=== PATIENT | male | born 1985 | race American Indian/Alaskan Native ===

== ENCOUNTER 2016-11-06 17:57 | Inpatient (IN) | payer MEDICAID ==
[2016-11-06 19:55] LABS: ADD MANUAL DIFF? NO
[2016-11-06 20:04] LABS: BASO # 0.1 K/uL (0.0-0.2); BASO % 0.8 % (0.0-2.0); EOS # 0.6 K/uL (0.0-0.7); EOS % 5.6 % (0.0-4.0); HEMATOCRIT 42.1 % (35.0-51.0); LYMPH # 1.8 K/uL (1.0-4.3); LYMPH % 15.6 % (20.0-40.0); MEAN CELL VOLUME 85.1 fL (80.0-94.0); MEAN CORPUSCULAR HEMOGLOBIN 28.4 pg (27.0-31.0); MEAN CORPUSCULAR HGB CONC 33.3 g/dL (33.0-37.0); MEAN PLATELET VOLUME 7.5 fL (7.2-11.7); MONO # 0.8 K/uL (0.0-0.8); MONO % 7.1 % (0.0-10.0); PLATELET COUNT 253 K/uL (130-400); RED CELL DISTRIBUTION WIDTH 14.4 % (11.5-14.5); WHITE BLOOD COUNT 11.3 K/uL (4.8-10.8)
[2016-11-06 20:12] LABS: ALB/GLOB RATIO 1.4 (1.0-2.1); BILIRUBIN,TOTAL 0.5 mg/dL (0.2-1.3); BLOOD UREA NITROGEN 10 mg/dL (9-20); CALCIUM 8.4 mg/dl (8.6-10.4); CARBON DIOXIDE 30 mmol/L (22-30); CHLORIDE 98 mmol/L (98-107); GFR AFRICAN-AMERICAN > 60; GLUCOSE,RANDOM 89 mg/dL (75-110); POTASSIUM 4.1 mmol/L (3.6-5.2); SODIUM 137 mmol/L (132-148); TOTAL PROTEIN 7.1 g/dL (6.3-8.3)
[2016-11-06 20:13] LABS: ALCOHOL SERUM < 10 mg/dl (0-10); ALKALINE PHOSPHATASE 63 U/L (38-126); ALT/SGPT 16 U/L (21-72); AST/SGOT 22 U/L (17-59)
[2016-11-06 21:14] LABS: RBC URINE 2 /hpf (0-3); URINE BILIRUBIN NEGATIVE (NEGATIVE); URINE BLOOD NEGATIVE (NEGATIVE); URINE COLOR Yellow (YELLOW); URINE GLUCOSE (UA) NORMAL (Normal); URINE KETONE NEGATIVE (NEGATIVE); URINE LEUKOCYTE ESTERASE NEG Leu/uL (Negative); URINE PROTEIN NEGATIVE (NEGATIVE); URINE UROBILINOGEN NORMAL mg/dL (0.2-1.0); WBC URINE 1 /hpf (0-5)
--- NOTE | 2016-11-06 21:50 | C.PDOC ---
History Of Present Illness Pt is here requesting detox from Heroin. Time Seen by Provider: 11/06/16 18:33 Chief Complaint (Nursing): Substance Abuse History Per: Patient Onset/Duration Of Symptoms: Days Current Symptoms Are (Timing): Still Present Suicide/Self Injury Attempted (Context): None Modifying Factor(s): Narcotics Severity: Moderate Associated Symptoms: denies: Suicidal Thoughts, Suicidal Plan Additional History Per: Prior Records Past Medical History Reviewed: Historical Data, Nursing Documentation, Vital Signs Vital Signs: Last Vital Signs Temp 98.2 F 11/06/16 21:00 Pulse 69 11/06/16 21:00 Resp 16 11/06/16 21:00 BP 126/78 11/06/16 21:00 Pulse Ox 96 11/06/16 21:51 - Medical History PMH: Asthma - [facility] DETOXIFICATION SERVICES FOR SUBSTANCE ABUSE TREATMENT (07/09/15) DRUG DETOXIFICATION (09/18/14) Family History: States: Unknown Family Hx - Social History Hx Tobacco Use: Yes Hx Alcohol Use: No Hx Substance Use: Yes (Snorts Heroin) - Immunization History Hx Tetanus Toxoid Vaccination: No Hx Influenza Vaccination: No Hx Pneumococcal Vaccination: Yes Review Of Systems Except As Marked, All Systems Reviewed And Found Negative. Constitutional: Negative for: Fever Cardiovascular: Negative for: Chest Pain Respiratory: Negative for: Shortness of Breath Gastrointestinal: Negative for: Vomiting, Abdominal Pain Musculoskeletal: Negative for: Neck Pain Skin: Negative for: Rash Neurological: Negative for: Weakness, Numbness, Seizures Physical Exam - Physical Exam Appears: Non-toxic, No Acute Distress Skin: Normal Color, Warm, No Rash Head: Atraumatic, Normacephalic Eye(s): bilateral: PERRL, EOMI Neck: Normal ROM, Supple Cardiovascular: Rhythm Regular Respiratory: Normal Breath Sounds, No Accessory Muscle Use Gastrointestinal/Abdominal: Soft, No Tenderness Extremity: Normal ROM, No Deformity Neurological/Psych: Oriented x3, Normal Motor, Normal Sensation ED Course And Treatment - Laboratory Results Result Diagrams: 11/06/16 19:53 11/06/16 19:53 Lab Interpretation: No Acute Changes O2 Sat by Pulse Oximetry: 96 Pulse Ox Interpretation: Normal Progress Note: Pt is medically stable for detox admission. Disposition Counseled Patient/Family Regarding: Studies Performed, Diagnosis - Disposition Disposition: HOSPITALIZED Disposition Time: 22:22 Condition: STABLE - Clinical Impression Clinical Impression: Heroin dependence Decision To Admit - Pt Status Changed To: Hospital Disposition Of: Inpatient - Admit Certification Admit to Inpatient:: After my assessment, the patient will require hospitalization for at least two midnights. This is because of the severity of symptoms shown, intensity of services needed, and/or the medical risk in this patient being treated as an outpatient. - InPatient: Physician Admission Certification: I certify that this patient requires 2 or more midnights of care for the following reason:: Detox. - . Bed Request Type: Detox Admitting Physician: Jaswinder Riddle Patient Diagnosis: Heroin dependence
[2016-11-07] MEDS ORDERED: Aluminum Hydroxide/Magnesium Hydroxide Susp (30 mL) PO PRN (10:08)
[2016-11-07] MEDS ORDERED: Benzocaine/Menthol (Cepacol) Lozenge MT PRN (10:40)
[2016-11-07] MEDS: guaiFENesin 100 mg/5 ml Syrup UD PO PRN ×2 (11:25→19:27)
--- NOTE | 2016-11-07 12:03 | PCM.PSYCH ---
Initial Psychiatric Evaluation - Initial Psychiatric Evaluation Type of Admission: Voluntary Legal Status: Capacity Chief Complaint (in patient's own words): "I relapsed 2 months ago" History of Present Illness and Precipitating Events: The patient is seen, chart reviewed and case discussed. He is known to the specification writer from previous admissions. This is a 31-year-old male, single, no child, living alone. He states he finished [facility] this year but relapsed a month after, about 2-3 months ago, and now he is using 7 bags of intranasal heroin He is also taking 4 mg of Xanax from a doctor for anxiety. He smokes half pack per day cigarettes. He denies all other drug and alcohol use. His last use was yesterday morning and he has withdrawal symptoms now. He denies having psych symptoms other than anxiety. He is on probation for another 6 months. Past psych history: Denies. However, he was admitted to detox more than 10 times and inpatient rehabilitation 3 times. He also used Suboxone. His first heroin use was when he was 16. Medical history: Denies Family psych history: Denies Current Medications: Active Medications Generic Name Dose Route Start Last Admin Trade Name Freq PRN Reason Stop Dose Admin Al Hydrox/Mg Hydrox/Simethicone 30 ml 11/07/16 10:08 Maalox 30 Ml PO TID PRN Indigestion / Heartburn Benzocaine/Menthol 1 mo 11/07/16 10:40 11/07/16 11:26 Cepacol Sore Throat MT 1 mo Q4H PRN Administration Sore Throat Chlordiazepoxide 25 mg 11/07/16 12:00 Librium PO 11/10/16 11:59 TID WILLI Taper Chlordiazepoxide 25 mg 11/07/16 11:08 Librium PO Q4H PRN Alcohol Withdrawal Clonidine HCl 0.1 mg 11/07/16 10:08 Catapres PO Q8 PRN COWS Score More or Equal to 5 Gabapentin 300 mg 11/07/16 11:15 11/07/16 11:26 Neurontin PO 300 mg BID WILLI Administration Guaifenesin 100 mg 11/07/16 10:40 11/07/16 11:25 Robitussin PO 100 mg Q4H PRN Administration Cough Loperamide HCl 2 mg 11/07/16 10:08 Imodium PO Q8 PRN Diarrhea Nicotine 1 patch 11/07/16 11:15 11/07/16 11:16 Nicoderm Cq TD 1 patch DAILY WILLI Administration Ondansetron HCl 4 mg 11/07/16 10:08 Zofran Tab PO Q8 PRN Nausea/Vomiting Pneumococcal Polyvalent Vaccine 0.5 ml 11/09/16 10:30 Pneumovax 23 Vaccine IM 11/09/16 10:31 .ONCE ONE Trazodone HCl 100 mg 11/07/16 22:00 Desyrel PO HS PRN Insomnia Past Psychiatric History - Past Psychiatric History Previous Treatment History: None Pertinent Medical Hx (Current Medical&Sleep Prob, Allergies): Allergies Allergy/AdvReac Type Severity Reaction Status Date / Time No Known Allergies Allergy Verified 07/09/15 15:52 No Known Home Med 11/06/16 Review of Systems - Psychiatric Psychiatric: Abnormal Sleep Pattern, Anxiety, Irritability. absent: Depression , Hallucinations, Homicidal Ideation, Suicidal Ideation Mental Status Examination - Personal Presentation Personal Presentation: Looks older than stated age - Affect Affect: Constricted - Motor Activity Motor Activity: Calm - Reliability in Providing Information Reliability in Providing Information: Good - Speech Speech: Organized - Mood Mood: Anxious - Formal Thought Process Formal Thought Process: No Impairment - Cognitive Functions Orientation: Person, Place, Situation, Time Sensorium: Alert Attention/Concentration: Easily distracted Abstract Thinking: [place] Estimate of Intelligence: Average Judgement: Intact, as evidence by: Insight regarding need for hospitalization Memory: Recent intact, as evidence by: Ability to recall events of the day, Remote intact, as evidenced by: Abilit to recall sig. life events - Risk Risk: Diminished functioning - Strength & Assets Inventory Strength & Assets Inventory: Cooperative - Limitations Limitations: Living alone DSM 5 DX - DSM 5 DSM 5 Diagnosis: Opioid withdrawal Opioid use d/o - severe Sedative hypnotic use d/o - moderate Anxiety d/o - unspecified - Recommended/Plan of Treatment Treatment Recommendations and Plan of Treatment: Opioids: - Subutex detox - As needed meds - Attend groups and activities - CA and CBT - Support an dpsychoed Sedatives: - Librium detox, short - As needed meds - Attend groups and activities - CA and CBT - Support an dpsychoed - Gabapentin Anxiety d/o : - Support and psychoed - gabapentin - CBT 33 min Projected ELOS: 4 days Prognosis: good with treatment Discharge Plan and Discharge Criteria: No wdw sx Refer to IOP or rehab MAT discussed and he understood its importance - Smoking Cessation Smoking Cessation Initiated: Yes
[2016-11-07] MEDS ORDERED: Albuterol HFA 90 mcg/actuation (8 g) INH PRN (14:11)
[2016-11-07] MEDS ORDERED: Buprenorphine Hydrochloride 2 mg SL ONE ×2 (18:12→19:40)
[2016-11-07] MEDS: Fluticasone-Salmeterol 250-50mcg Diskus INH SCH (19:27)
[2016-11-08] MEDS: Fluticasone-Salmeterol 250-50mcg Diskus INH SCH ×3 (07:26→21:51)
[2016-11-08] MEDS: guaiFENesin 100 mg/5 ml Syrup UD PO PRN (07:26)
[2016-11-08] MEDS: Oxymetazoline 0.05% Nasal Spray (30 ml) NS SCH ×2 (09:37→21:40)
[2016-11-08] MEDS: Buprenorphine Hydrochloride 2 mg SL SCH (09:55)
--- NOTE | 2016-11-08 11:04 | PCM.PYCHPN ---
Psychiatric Progress Note - Psychiatric Progress Note Patient seen today, length of contact: 15 min Patient Chief Complaint: "I am still sick" Problems Identified/Issues Discussed: The pt is seen, chart reviewed and case discussed Support and psychoed given LA used Sxs of wdw are in control with detox He slept fine Medication Change: Yes (detox changes daily) Medical Record Reviewed: Yes Mental Status Examination - Cognitive Function Orientation: Person, Place, Situation, Time Memory: Intact Attention: WNL Concentration: WNL Association: WNL Fund of Knowledge: WNL - Mood Mood: Anxious - Affect Affect: Constricted - Speech Speech: Appropriate - Formal Thought Process Formal Thought Process: No Impairment - Suicidal Ideation Suicidal Ideation: No - Homicidal Ideation Homicidal Ideation: No Goal/Treatment Plan - Goal/Treatment Plan Need for Continued Stay: Discharge may exacerbated symptoms, Severe functional impairment Progress Toward Problem(s) and Goals/Treatment Plan: Opioids: - Subutex detox - As needed meds - Attend groups and activities - LA and CBT - Support an dpsychoed Sedatives: - Librium detox, short - As needed meds - Attend groups and activities - LA and CBT - Support an dpsychoed - Gabapentin Anxiety d/o : - Support and psychoed - gabapentin - CBT Afrin, cepakol and robitussin for cold Estimated Date of D/C: 11/10/16 - Smoking Cessation Smoking Cessation Initiated: Yes
[2016-11-09] MEDS: Oxymetazoline 0.05% Nasal Spray (30 ml) NS SCH ×2 (10:09→20:09)
[2016-11-09] MEDS: Buprenorphine Hydrochloride 2 mg SL SCH (10:10)
[2016-11-09] MEDS: Fluticasone-Salmeterol 250-50mcg Diskus INH SCH ×2 (10:10→20:09)
[2016-11-09] MEDS ORDERED: Pneumococcal 23-Valent Vaccine IM ONE (10:30)
--- NOTE | 2016-11-09 11:50 | PCM.PYCHPN ---
Psychiatric Progress Note - Psychiatric Progress Note Patient seen today, length of contact: 16 min Patient Chief Complaint: "I am better" Problems Identified/Issues Discussed: The pt is seen, chart reviewed, case discussed with staff. The pt is compliant with medications and reports no side-effects. Symptoms are improving but needs more time to stabilize. After care discussed, support and psychoeducation given. Medication Change: Yes (detox changes daily) Medical Record Reviewed: Yes Mental Status Examination - Cognitive Function Orientation: Person, Place, Situation, Time Memory: Intact Attention: WNL Concentration: WNL Association: WNL Fund of Knowledge: WNL - Mood Mood: Anxious - Affect Affect: Constricted - Speech Speech: Appropriate - Formal Thought Process Formal Thought Process: No Impairment - Suicidal Ideation Suicidal Ideation: No - Homicidal Ideation Homicidal Ideation: No Goal/Treatment Plan - Goal/Treatment Plan Need for Continued Stay: Discharge may exacerbated symptoms, Severe functional impairment Progress Toward Problem(s) and Goals/Treatment Plan: Opioids: - Subutex detox - As needed meds - Attend groups and activities - [place] and CBT - Support an dpsychoed Sedatives: - Librium detox, short - As needed meds - Attend groups and activities - NV and CBT - Support an dpsychoed - Gabapentin Anxiety d/o : - Support and psychoed - gabapentin - CBT Afmike, cepakol and aureaitussin for cold Estimated Date of D/C: 11/10/16
[2016-11-10 06:21] VITALS: O2SAT 96
--- NOTE | 2016-11-10 08:27 | PCM.PYCHDC ---
Mental Status Examination - Mental Status Examination Orientation: Person, Place, Situation, Time Memory: Intact Mood: Anxious Affect: Constricted Speech: Appropriate Attention: WNL Concentration: WNL Association: WNL Fund of Knowledge: WNL Formal Thought Process: No Impairment Suicidal Ideation: No Current Homicidal Ideation?: No Discharge Summary - Discharge Note Reason for Hospitalization: Opioid detox Consultations:: List each consultation separately and include: 1. Reason for request. 2. Findings. 3. Follow-up Summary of Hospital Course include:: 1. Description of specific treatment plan utilized for patients during their course of treatmen. 2. Summarize the time- course for resolution of acute symptoms and/or regressed behaviors. 3. Describe issues identified and worked on during hospitalization. 4. Describe medication utilized. 5. Describe medical problems identified and treated. 6. Reassessment of suicide risk Summary of Hospital Course: The patient is seen, chart reviewed and case discussed. On admission: He is known to the inspector automatic typewriter from previous admissions. This is a 31-year-old male, single, no child, living alone. He states he finished [facility] this year but relapsed a month after, about 2-3 months ago, and now he is using 7 bags of intranasal heroin He is also taking 4 mg of Xanax from a doctor for anxiety. He smokes half pack per day cigarettes. He denies all other drug and alcohol use. His last use was yesterday morning and he has withdrawal symptoms now. He denies having psych symptoms other than anxiety. He is on probation for another 6 months. Past psych history: Denies. However, he was admitted to detox more than 10 times and inpatient rehabilitation 3 times. He also used Suboxone. His first heroin use was when he was 16. Medical history: Denies Family psych history: Denies Hospital course: The pt was admitted and started on treatment with psychotherapy, support, psychoeducation and medications. MT and CBT used. The pt attended groups and activities, as well as milieu therapy. All the risks and benefits of medications are discussed and the patient understood and agreed. After care discussed with the patient. He chose to go to [facility] level and referred to [facility] - Final Diagnosis (DSM 5) Condition upon Discharge: STABLE DSM 5: Opioid withdrawal Opioid use d/o - severe Sedative hypnotic use d/o - moderate Anxiety d/o - unspecified Disposition: HOME/ ROUTINE Follow-up Treatment Plan: Continue below medications after discharge. Follow after care plan as discussed: [facility] IOP Use relapse prevention skills Return to ER or call 911 if suicidal, homicidal or symptoms relapse. Stay away from stress, alcohol and drugs. Prescriptions/Medication Reconciliation: Albuterol HFA [Ventolin HFA 90 mcg/actuation (8 g)] 1 puff INH RQ4 PRN #1 inhaler PRN Reason: SOB Fluticasone/Salmeterol 250/50 [Advair Diskus 250/50] 1 puff INH RQ12 #1 puff Gabapentin [Neurontin] 300 mg PO BID #60 cap traZODone [Desyrel] 100 mg PO HS PRN #30 tab PRN Reason: Insomnia - Smoking Cessation Smoking Cessation Medication prescribed: No - Antipsychotic Medications Pt discharged on 2 or more routine antipsychotic medications: No
[2016-11-10 10:51] VITALS: BP 143/83; PULSE 80; RESP 16; TEMP 97.5
[2016-11-10] MEDS: Oxymetazoline 0.05% Nasal Spray (30 ml) NS SCH (10:58)
[2016-11-10] MEDS: Fluticasone-Salmeterol 250-50mcg Diskus INH SCH (10:58)
[2016-11-10] MEDS: Buprenorphine Hydrochloride 2 mg SL SCH (10:59)
== END 2016-11-10 11:55 | disposition home or self-care (01) | DRG 745 ==
LOC: C.ER 17:57 → C.7D 22:22
PROC: HZ52ZZZ Individual Psychotherapy for Substance Abuse Treatment, Cognitive-Behavioral (ICD-10-PCS; principal; 2016-11-06)
PROC: HZ2ZZZZ Detoxification Services for Substance Abuse Treatment (ICD-10-PCS; 2016-11-06)
PROC: HZ59ZZZ Individual Psychotherapy for Substance Abuse Treatment, Supportive (ICD-10-PCS; 2016-11-06)
PROC: HZ56ZZZ Individual Psychotherapy for Substance Abuse Treatment, Psychoeducation (ICD-10-PCS; 2016-11-06)
DX: F11.23 Opioid dependence with withdrawal (principal); F13.20 Sedative, hypnotic or anxiolytic dependence, uncomplicated; F41.9 Anxiety disorder, unspecified

== ENCOUNTER 2017-11-24 21:43 | Inpatient (IN) | payer MEDICAID ==
--- NOTE | 2017-11-24 21:59 | C.PDOC ---
History Of Present Illness 32 year old male presents to the ED requesting detox for heroin abuse. 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 Patient reports he snorts 15 bags. Patient denies SI/HI, hallucinations, fever, chills, CP, SOB. Time Seen by Provider: 11/24/17 21:58 Chief Complaint (Nursing): Substance Abuse History Per: Patient History/Exam Limitations: no limitations Onset/Duration Of Symptoms: Hrs Current Symptoms Are (Timing): Still Present Suicide/Self Injury Attempted (Context): None Modifying Factor(s): Other (Heroin) Severity: None Associated Symptoms: denies: Depression, Suicidal Thoughts, Suicidal Plan Involuntary Hold By: None Recent travel outside of the [place]: No Additional History Per: Patient Past Medical History Reviewed: Historical Data, Nursing Documentation, Vital Signs Vital Signs: Last Vital Signs Temp 99.2 F 11/24/17 21:49 Pulse 107 H 11/24/17 21:49 Resp 18 11/24/17 21:49 BP 145/87 11/24/17 21:49 Pulse Ox 95 11/24/17 23:57 - Medical History PMH: Anxiety, Asthma Denies: Diabetes, Hepatitis, HIV, HTN, Chronic Kidney Disease, Seizures, Sexually Transmitted Disease Surgical History: No Surg Hx - [facility] DETOXIFICATION SERVICES FOR SUBSTANCE ABUSE TREATMENT (11/06/16) DRUG DETOXIFICATION (09/18/14) INDIV PSYCHOTHERAPY FOR SUBSTANCE ABUSE TREATMENT, SUPPORT (11/06/16) INDIV PSYCHOTHERAPY FOR SUBSTANCE ABUSE, COGNITIV BEHAVIORAL (11/06/16) INDIV PSYCHOTHERAPY FOR SUBSTANCE ABUSE, PSYCHOEDUCATION (11/06/16) Family History: States: Unknown Family Hx - Social History Hx Tobacco Use: Yes Hx Alcohol Use: Yes Hx Substance Use: Yes (Snorts Heroin) - Immunization History Hx Tetanus Toxoid Vaccination: No Hx Influenza Vaccination: No Hx Pneumococcal Vaccination: Yes Review Of Systems Constitutional: Negative for: Fever, Chills Cardiovascular: Negative for: Chest Pain Respiratory: Negative for: Shortness of Breath Gastrointestinal: Negative for: Nausea, Vomiting Skin: Negative for: Rash Neurological: Negative for: Headache Psych: Negative for: Depression, Suicidal ideation Physical Exam - Physical Exam Appears: Non-toxic, No Acute Distress Skin: Warm, Dry Head: Normacephalic Eye(s): bilateral: Normal Inspection Oral Mucosa: Moist Neck: Supple Chest: Symmetrical Cardiovascular: Rhythm Regular Respiratory: No Rales, No Rhonchi, No Wheezing Gastrointestinal/Abdominal: Soft, No Tenderness, No Guarding, No Rebound Back: Normal Inspection Extremity: No Tenderness, No Swelling Extremity: Bilateral: Atraumatic, Normal Color And Temperature, Normal ROM Neurological/Psych: Oriented x3, Normal Speech Gait: Steady ED Course And Treatment - Laboratory Results Result Diagrams: 11/24/17 22:39 11/24/17 22:39 O2 Sat by Pulse Oximetry: 95 (ON RA) Pulse Ox Interpretation: Normal Progress Note: Plan: - Labs. - UA. - Crisis Disposition Discussed With DrEstevan: Kartik Riojas Comment: accepted the p ton his service and took over the care at 12:40 AM Doctor Will See Patient In The: Hospital Counseled Patient/Family Regarding: Studies Performed, Diagnosis - Disposition Disposition: HOSPITALIZED Disposition Time: 21:59 Condition: FAIR Forms: [facility] (Amharic) - Clinical Impression Clinical Impression: Drug abuse, Heroin dependence - Scribe Statement The provider has reviewed the documentation as recorded by the Scribe Baljeet Delaney All medical record entries made by the Scribe were at my direction and personally dictated by me. I have reviewed the chart and agree that the record accurately reflects my personal performance of the history, physical exam, medical decision making, and the department course for this patient. I have also personally directed, reviewed, and agree with the discharge instructions and disposition. Decision To Admit - Pt Status Changed To: Hospital Disposition Of: Inpatient - Admit Certification Admit to Inpatient:: After my assessment, the patient will require hospitalization for at least two midnights. This is because of the severity of symptoms shown, intensity of services needed, and/or the medical risk in this patient being treated as an outpatient. - InPatient: Physician Admission Certification: I certify that this patient requires 2 or more midnights of care for the following reason:: After my assessment, the patient will require hospitalization for at least two midnights. This is because of the severity of symptoms shown, intensity of services needed, and/or the medical risk in this patient being treated as an outpatient. - . Bed Request Type: Detox Admitting Physician: Kartik Riojas Patient Diagnosis: Drug abuse, Heroin dependence
[2017-11-24 22:42] LABS: BASO # 0.1 K/uL (0.0-0.2); BASO % 0.9 % (0.0-2.0); EOS # 0.4 K/uL (0.0-0.7); EOS % 4.1 % (0.0-4.0); LYMPH # 2.1 K/uL (1.0-4.3); LYMPH % 18.9 % (20.0-40.0); MEAN CELL VOLUME 83.4 fL (80.0-94.0); MEAN CORPUSCULAR HEMOGLOBIN 27.6 pg (27.0-31.0); MEAN CORPUSCULAR HGB CONC 33.1 g/dL (33.0-37.0); MEAN PLATELET VOLUME 7.5 fL (7.2-11.7); MONO # 0.6 K/uL (0.0-0.8); MONO % 5.9 % (0.0-10.0); NEUT # 7.7 K/uL (1.8-7.0); NEUT % 70.2 % (50.0-75.0); NRBC % 0.2 % (0.0-2.0); RBC 5.07 Mil/uL (4.40-5.90)
[2017-11-24 22:59] LABS: ALB/GLOB RATIO 1.5 (1.0-2.1); ALBUMIN 4.8 g/dL (3.5-5.0); ALT/SGPT 27 U/L (21-72); AST/SGOT 24 U/L (17-59); BLOOD UREA NITROGEN 10 mg/dL (9-20); CALCIUM 9.3 mg/dl (8.6-10.4); GFR AFRICAN-AMERICAN > 60; GFR NON-AFRICAN AMERICAN > 60
[2017-11-24] MEDS ORDERED: Albuterol-Ipratrop 3 mg / 0.5 (3 ml) UD INH STA (23:44)
[2017-11-24] MEDS ORDERED: Albuterol-Ipratrop 3 mg / 0.5 (3 ml) UD ONE (23:49)
[2017-11-25 00:05] LABS: SQUAMOUS EPITHIAL < 1 /hpf (0-5); URINE BACTERIA RARE (<OCC); URINE BILIRUBIN NEGATIVE (NEGATIVE); URINE BLOOD NEGATIVE (NEGATIVE); URINE CLARITY Clear (Clear); URINE COLOR Yellow (YELLOW); URINE GLUCOSE (UA) NORMAL (Normal); URINE LEUKOCYTE ESTERASE NEG Leu/uL (Negative); URINE PROTEIN NEGATIVE (NEGATIVE); URINE UROBILINOGEN NORMAL mg/dL (0.2-1.0)
[2017-11-25 00:09] LABS: BARBITURATES, UR NEGATIVE (NEGATIVE); OPIATES, UR NEGATIVE (NEGATIVE); PHENCYCLIDINE, UR NEGATIVE (NEGATIVE)
[2017-11-25 00:18] LABS: BENZODIAZEPINES, UR POSITIVE (NEGATIVE)
[2017-11-25] MEDS ORDERED: Aluminum Hydroxide/Magnesium Hydroxide Susp (30 mL) PO PRN (07:40)
--- NOTE | 2017-11-25 07:42 | PCM.PSYCH ---
Initial Psychiatric Evaluation - Initial Psychiatric Evaluation Type of Admission: Voluntary Legal Status: Capacity Chief Complaint (in patient's own words): "Withdrawing" History of Present Illness and Precipitating Events: The patient is seen, chart reviewed and case discussed. He is known to the publicity writer from previous admissions. This is a 32-year-old male, single, no child, living with parents. He states he finished [facility] but relapsed soon after, and now he is using up to 15, sometimes 20 bags of intranasal heroin. He started when he was 16 y/o He is also taking 2 mg of Xanax from a doctor for anxiety. He smokes half pack per day cigarettes. He denies all other drug and alcohol use. His last use was yesterday and he has withdrawal symptoms now. His urine came negative but he does have wdw sxs He denies having psych symptoms other than anxiety. He was in detox "many times" and rehab "less" and he used suboxone too. Past psych history: Denies. Medical history: Asthma Family psych history: Denies Current Medications: Active Medications Generic Name Dose Route Start Last Admin Trade Name Freq PRN Reason Stop Dose Admin Al Hydrox/Mg Hydrox/Simethicone 30 ml 11/25/17 07:40 Maalox 30 Ml PO TID PRN Indigestion / Heartburn Clonidine HCl 0.1 mg 11/25/17 07:40 Catapres PO Q8 PRN COWS Score More or Equal to 5 Loperamide HCl 2 mg 11/25/17 07:40 Imodium PO Q8 PRN Diarrhea Ondansetron HCl 4 mg 11/25/17 07:40 Zofran Tab PO Q8 PRN Nausea/Vomiting Past Psychiatric History - Past Psychiatric History Previous Treatment History: None Pertinent Medical Hx (Current Medical&Sleep Prob, Allergies): Allergies Allergy/AdvReac Type Severity Reaction Status Date / Time No Known Allergies Allergy Verified 11/24/17 21:56 Albuterol HFA [Ventolin HFA 90 mcg/actuation (8 g)] 1 puff INH RQ4 PRN #1 inhaler 11/10/16 Fluticasone/Salmeterol 250/50 [Advair Diskus 250/50] 1 puff INH RQ12 #1 puff 07/28 ALPRAZolam [Xanax] 1 mg PO BID 11/24/17 Review of Systems - Psychiatric Psychiatric: Abnormal Sleep Pattern, Anxiety, Difficulty Concentrating, Irritability. absent: Hallucinations, Homicidal Ideation, Paranoia, Suicidal Ideation Mental Status Examination - Personal Presentation Personal Presentation: Looks older than stated age - Affect Affect: Constricted - Motor Activity Motor Activity: Calm - Reliability in Providing Information Reliability in Providing Information: Good - Speech Speech: Organized - Mood Mood: Anxious - Formal Thought Process Formal Thought Process: No Impairment - Cognitive Functions Orientation: Person, Place, Situation, Time Sensorium: Alert Attention/Concentration: Attentive Estimate of Intelligence: Average Judgement: Intact, as evidence by: Insight regarding need for hospitalization Memory: Recent intact, as evidence by: Ability to recall events of the day, Remote impaired as evidenced by: Inability to recall historical events - Risk Risk: Withdrawal, Diminished functioning - Strength & Assets Inventory Strength & Assets Inventory: Cooperative - Limitations Limitations: Living alone DSM 5 DX - DSM 5 DSM 5 Diagnosis: Opioid withdrawal Opioid use d/o - severe Sedative hypnotic use d/o - moderate Anxiety d/o - unspecified - Recommended/Plan of Treatment Treatment Recommendations and Plan of Treatment: Opioids: - Methadone detox - As needed meds - Attend groups and activities - [place] and CBT - Support an dpsychoed Sedatives: - Librium detox, short - As needed meds - Attend groups and activities - [place] and CBT - Support an dpsychoed - Gabapentin Anxiety d/o : - Support and psychoed - gabapentin - CBT 33 min Projected ELOS: 5 days - Smoking Cessation Smoking Cessation Initiated: Yes
[2017-11-25] MEDS ORDERED: Albuterol-Ipratrop 20 mcg/actuation (4 g) INH PRN ×2 (08:44→11:00)
[2017-11-25] MEDS ORDERED: Albuterol-Ipratrop 3 mg / 0.5 (3 ml) UD INH PRN (10:36)
[2017-11-25 12:02] LABS: BARBITURATES, UR NEGATIVE (NEGATIVE); PHENCYCLIDINE, UR NEGATIVE (NEGATIVE)
[2017-11-25 13:05] LABS: BENZODIAZEPINES, UR POSITIVE (NEGATIVE); OPIATES, UR POSITIVE (NEGATIVE)
[2017-11-26 06:13] VITALS: RESP 18
--- NOTE | 2017-11-26 21:54 | PCM.PYCHPN ---
Psychiatric Progress Note - Psychiatric Progress Note Patient seen today, length of contact: 16 min Patient Chief Complaint: "Tired" Problems Identified/Issues Discussed: The pt is seen, chart reviewed, case discussed with staff. The pt is compliant with medications and reports no side-effects. Symptoms are improving but needs more time to stabilize. After care discussed, support and psychoeducation given. Medication Change: Yes (detox changes daily) Medical Record Reviewed: Yes Mental Status Examination - Cognitive Function Orientation: Person, Place, Situation, Time Memory: Intact Attention: WNL Concentration: Poor Association: WNL Fund of Knowledge: WNL - Mood Mood: Anxious - Affect Affect: Constricted - Speech Speech: Appropriate - Formal Thought Process Formal Thought Process: No Impairment - Suicidal Ideation Suicidal Ideation: No - Homicidal Ideation Homicidal Ideation: No Goal/Treatment Plan - Goal/Treatment Plan Need for Continued Stay: Discharge may exacerbated symptoms, Severe functional impairment Progress Toward Problem(s) and Goals/Treatment Plan: Opioids: - Methadone detox - As needed meds - Attend groups and activities - LA and CBT - Support an dpsychoed Sedatives: - Librium detox, short - As needed meds - Attend groups and activities - LA and CBT - Support an dpsychoed - Gabapentin Anxiety d/o : - Support and psychoed - gabapentin - CBT Estimated Date of D/C: 11/29/17
--- NOTE | 2017-11-27 12:58 | PCM.BM ---
<Jo Ann Scott - Last Filed: 11/27/17 12:56> Treatment Plan Problems - Problems identified on initial assessmt Potential for opiod withdrawal Assessment reference: Other Treatment assets and liabiliti Patient Assests: self-reliant, ADL independent, good support system, negotiates basic needs Patient Liabilities: substance abuse - Milieu Protocol Maintain good personal hygiene: every shift Encourage regular showers, every shift Remind patient to perform daily oral care, every shift Assist patient to perform ADL's Maintain personal safety: every shift Educate patient to report safety concerns to staff, every shift Monitor environment for contraband/sharps Medication safety: Monitor for expected outcome, potential side effects: every shift, Assess barriers to learning: every shift, Assess readiness for medication education: every shift Milieu Narrative: Opioids: - Methadone detox - As needed meds - Attend groups and activities - [place] and CBT - Support an dpsychoed Sedatives: - Librium detox, short - As needed meds - Attend groups and activities - [place] and CBT - Support an dpsychoed - Gabapentin Anxiety d/o : - Support and psychoed - gabapentin - CBT Discharge/Continuing Care - Treatment Team Participation Patient/Family/SO Statement: Opioids: - Methadone detox - As needed meds - Attend groups and activities - [place] and CBT - Support an dpsychoed Sedatives: - Librium detox, short - As needed meds - Attend groups and activities - [place] and CBT - Support an dpsychoed - Gabapentin Anxiety d/o : - Support and psychoed - gabapentin - CBT <Kartik Riojas - Last Filed: 11/27/17 14:07> - Diagnosis (1) Opioid use disorder, severe, dependence Status: Acute Interventions: 11/27/17 14:07 * Assess 7x/week regarding severity of withdrawal * Educate regarding risks, benefits, side effects and alternatives of medications * Use Motivational Interviewing for abstinence * Use CBT for relapse prevention * Medication management for withdrawal symptoms * Encourage medication assisted treatment * <Katie Corrales - Last Filed: 11/29/17 10:46> Family Contact Family involvement: Famliy/SO not involved - Goals for Treatment Patient goals for treatment: Complete detox and transition to rehab at [facility]. Discharge/Continuing Care - Education Needs Education Needs: Patient Medication, Patient Diagnosis/Disease Process, Patient Coping Skills, Patient Anger Management skills, Patient Placement options, Patient Community resources - Discharge Discharge Criteria: No longer exhibiting s/s of withdrawal, Reduction of target symptoms Discharge to:: Substance Abuse Rehab - Treatment Team Participation Patient/Family/SO Statement: 11/29/17 10:46 "[place]. I can't stay here..." Discussed with Family/SO: No Was Patient/Family/SO present at Treatment Team Meeting: Yes
--- NOTE | 2017-11-27 14:09 | PCM.PYCHPN ---
Psychiatric Progress Note - Psychiatric Progress Note Patient seen today, length of contact: 17 min Patient Chief Complaint: "Better today" Problems Identified/Issues Discussed: The pt is seen, chart reviewed, case discussed with staff. Support and psychoeducation given, CBT and OH used briefly No new symptoms reported, improving slowly and needs more time He is more up and about today, more appropriate and calmer No SEs from medications, risks discussed. After care discussed Medication Change: Yes (detox changes daily) Medical Record Reviewed: Yes Mental Status Examination - Cognitive Function Orientation: Person, Place, Situation, Time Memory: Intact Attention: WNL Concentration: Poor Association: WNL Fund of Knowledge: WNL - Mood Mood: Anxious - Affect Affect: Constricted - Speech Speech: Appropriate - Formal Thought Process Formal Thought Process: No Impairment - Suicidal Ideation Suicidal Ideation: No - Homicidal Ideation Homicidal Ideation: No Goal/Treatment Plan - Goal/Treatment Plan Need for Continued Stay: Discharge may exacerbated symptoms, Severe functional impairment Progress Toward Problem(s) and Goals/Treatment Plan: Opioids: - Methadone detox - As needed meds - Attend groups and activities - [place] and CBT - Support an dpsychoed Sedatives: - Librium detox, short - As needed meds - Attend groups and activities - [place] and CBT - Support an dpsychoed - Gabapentin Anxiety d/o : - Support and psychoed - gabapentin - CBT Estimated Date of D/C: 11/29/17
--- NOTE | 2017-11-28 13:30 | PCM.PYCHPN ---
Psychiatric Progress Note - Psychiatric Progress Note Patient seen today, length of contact: 15 min Patient Chief Complaint: "Better today" Problems Identified/Issues Discussed: The pt is seen, chart reviewed, case discussed with staff. The pt is compliant with medications and reports no side-effects. Symptoms are improving but needs more time to stabilize. After care discussed, support and psychoeducation Medication Change: Yes (detox changes daily) Medical Record Reviewed: Yes Mental Status Examination - Cognitive Function Orientation: Person, Place, Situation, Time Memory: Intact Attention: WNL Concentration: Poor Association: WNL Fund of Knowledge: WNL - Mood Mood: Anxious - Affect Affect: Constricted - Speech Speech: Appropriate - Formal Thought Process Formal Thought Process: No Impairment - Suicidal Ideation Suicidal Ideation: No - Homicidal Ideation Homicidal Ideation: No Goal/Treatment Plan - Goal/Treatment Plan Need for Continued Stay: Discharge may exacerbated symptoms, Severe functional impairment Progress Toward Problem(s) and Goals/Treatment Plan: Opioids: - Methadone detox - As needed meds - Attend groups and activities - [place] and CBT - Support an dpsychoed Sedatives: - Librium detox, short - As needed meds - Attend groups and activities - [place] and CBT - Support an dpsychoed - Gabapentin Anxiety d/o : - Support and psychoed - gabapentin - CBT Estimated Date of D/C: 11/29/17
--- NOTE | 2017-11-29 08:27 | PCM.PYCHDC ---
Mental Status Examination - Mental Status Examination Orientation: Person, Place, Situation, Time Memory: Intact Mood: Anxious Affect: Constricted Speech: Appropriate Attention: WNL Concentration: WNL Association: WNL Fund of Knowledge: WNL Formal Thought Process: No Impairment Suicidal Ideation: No Current Homicidal Ideation?: No Discharge Summary - Discharge Note Reason for Hospitalization: opioid detox Consultations:: List each consultation separately and include: 1. Reason for request. 2. Findings. 3. Follow-up Summary of Hospital Course include:: 1. Description of specific treatment plan utilized for patients during their course of treatmen. 2. Summarize the time- course for resolution of acute symptoms and/or regressed behaviors. 3. Describe issues identified and worked on during hospitalization. 4. Describe medication utilized. 5. Describe medical problems identified and treated. 6. Reassessment of suicide risk Summary of Hospital Course: The patient is seen, chart reviewed and case discussed. On admission: He is known to the resume writer from previous admissions. This is a 32-year-old male, single, no child, living with parents. He states he finished [facility] but relapsed soon after, and now he is using up to 15, sometimes 20 bags of intranasal heroin. He started when he was 16 y/o He is also taking 2 mg of Xanax from a doctor for anxiety. He smokes half pack per day cigarettes. He denies all other drug and alcohol use. His last use was yesterday and he has withdrawal symptoms now. His urine came negative but he does have wdw sxs He denies having psych symptoms other than anxiety. He was in detox "many times" and rehab "less" and he used suboxone too. Past psych history: Denies. Medical history: Asthma Family psych history: Denies Hospital course: The pt was admitted and started on treatment with psychotherapy, support, psychoeducation and medications. MA and CBT used. The pt attended groups and activities, as well as milieu therapy. All the risks and benefits of medications are discussed and the patient understood and agreed. The pt improved with the treatments provided. After care discussed with the patient.He left for [facility] in [place]. - Final Diagnosis (DSM 5) Condition upon Discharge: IMPROVED DSM 5: Opioid withdrawal Opioid use d/o - severe Sedative hypnotic use d/o - moderate Anxiety d/o - unspecified Disposition: REHAB FACILITY/REHAB UNIT Follow-up Treatment Plan: Continue below medications after discharge. Follow after care plan as discussed. Use relapse prevention skills Return to ER or call 911 if suicidal, homicidal or symptoms relapse. Stay away from stress, alcohol and drugs. See primary doctor regularly and get labs. Prescriptions/Medication Reconciliation: traZODone [Desyrel] 100 mg PO HS PRN #30 tab PRN Reason: Insomnia - Smoking Cessation Smoking Cessation Medication prescribed: No - Antipsychotic Medications Pt discharged on 2 or more routine antipsychotic medications: No
[2017-11-29 10:48] VITALS: BP 103/66; PULSE 62; TEMP 98.1; O2SAT 100
== END 2017-11-29 10:57 | disposition home or self-care (01) | DRG 745 ==
LOC: C.ER 21:43 → C.7D 11-25 00:39
PROVIDERS: ADMIT Psychiatry & Neurology Psychiatry; ATTEND Psychiatry & Neurology Psychiatry
PROC: HZ2ZZZZ Detoxification Services for Substance Abuse Treatment (ICD-10-PCS; principal; 2017-11-25)
PROC: HZ52ZZZ Individual Psychotherapy for Substance Abuse Treatment, Cognitive-Behavioral (ICD-10-PCS; 2017-11-25)
PROC: HZ59ZZZ Individual Psychotherapy for Substance Abuse Treatment, Supportive (ICD-10-PCS; 2017-11-25)
PROC: HZ56ZZZ Individual Psychotherapy for Substance Abuse Treatment, Psychoeducation (ICD-10-PCS; 2017-11-25)
PROC: HZ42ZZZ Group Counseling for Substance Abuse Treatment, Cognitive-Behavioral (ICD-10-PCS; 2017-11-25)
PROC: HZ46ZZZ Group Counseling for Substance Abuse Treatment, Psychoeducation (ICD-10-PCS; 2017-11-25)
DX: F11.23 Opioid dependence with withdrawal (principal); F13.20 Sedative, hypnotic or anxiolytic dependence, uncomplicated; F17.210 Nicotine dependence, cigarettes, uncomplicated; F41.9 Anxiety disorder, unspecified; J45.909 Unspecified asthma, uncomplicated

== ENCOUNTER 2018-02-01 16:46 | Inpatient (IN) | payer MEDICAID, OTHER ==
[2018-02-01 17:05] VITALS: BMI 29.3
[2018-02-01 17:53] LABS: BASO # 0.1 K/uL (0.0-0.2); BASO % 1.1 % (0.0-2.0); EOS # 0.8 K/uL (0.0-0.7); EOS % 9.6 % (0.0-4.0); HEMOGLOBIN 13.8 g/dL (12.0-18.0); LYMPH # 2.4 K/uL (1.0-4.3); LYMPH % 30.7 % (20.0-40.0); MEAN CELL VOLUME 82.7 fL (80.0-94.0); MEAN CORPUSCULAR HGB CONC 33.8 g/dL (33.0-37.0); MEAN PLATELET VOLUME 7.9 fL (7.2-11.7); MONO # 0.7 K/uL (0.0-0.8); MONO % 8.3 % (0.0-10.0); NEUT # 3.9 K/uL (1.8-7.0); NEUT % 50.3 % (50.0-75.0); NRBC % 0.4 % (0.0-2.0); RBC 4.94 Mil/uL (4.40-5.90); RED CELL DISTRIBUTION WIDTH 14.1 % (11.5-14.5); WHITE BLOOD COUNT 7.8 K/uL (4.8-10.8)
[2018-02-01 18:02] LABS: ALB/GLOB RATIO 1.5 (1.0-2.1); ALBUMIN 4.5 g/dL (3.5-5.0); CALCIUM 9.3 mg/dl (8.6-10.4); GFR NON-AFRICAN AMERICAN > 60
[2018-02-01 18:07] LABS: ALT/SGPT 54 U/L (21-72); AST/SGOT 71 U/L (17-59); BLOOD UREA NITROGEN 12 mg/dL (9-20)
--- NOTE | 2018-02-01 18:19 | C.PDOC ---
History Of Present Illness <Taylor Melo - Last Filed: 02/01/18 22:05> <Enrrique Gómez DO - Last Filed: 02/01/18 23:54> Patient is a 32 year old male who presents to ED for detox from heroin and benzodiazepine use. He states he used about 15 bags earlier this morning at 7am. Admits to occasional marijuana use, cocaine use. Patient has been prescreened for detox. (Taylor Melo) <Taylor Melo - Last Filed: 02/01/18 22:05> <Enrrique Gómez DO - Last Filed: 02/01/18 23:54> Chief Complaint (Nursing): Substance Abuse Past Medical History - Medical History PMH: Anxiety, Asthma Denies: Diabetes, Hepatitis, HIV, HTN, Chronic Kidney Disease, Seizures, Sexually Transmitted Disease Family History: States: Unknown Family Hx - Social History Hx Tobacco Use: Yes Hx Alcohol Use: No Hx Substance Use: Yes - Immunization History Hx Tetanus Toxoid Vaccination: No Hx Influenza Vaccination: No Hx Pneumococcal Vaccination: Yes <Taylor Melo - Last Filed: 02/01/18 22:05> Vital Signs: Last Vital Signs Temp 98.5 F 02/01/18 23:12 Pulse 75 02/01/18 23:12 Resp 18 02/01/18 23:12 BP 121/76 02/01/18 23:12 Pulse Ox 95 02/01/18 23:12 - [facility] DETOXIFICATION SERVICES FOR SUBSTANCE ABUSE TREATMENT (11/25/17) DRUG DETOXIFICATION (09/18/14) GROUP SUPERINTENDENT MECHANICAL FOR SUBSTANCE ABUSE TREATMENT, PSYCHOEDUCATION (11/25/17) GROUP SUPERINTENDENT MECHANICAL FOR SUBSTANCE ABUSE, COGNITIVE BEHAVIORAL (11/25/17) INDIV PSYCHOTHERAPY FOR SUBSTANCE ABUSE TREATMENT, SUPPORT (11/25/17) INDIV PSYCHOTHERAPY FOR SUBSTANCE ABUSE, COGNITIV BEHAVIORAL (11/25/17) INDIV PSYCHOTHERAPY FOR SUBSTANCE ABUSE, PSYCHOEDUCATION (11/25/17) Review Of Systems Review Of Systems: ROS cannot be obtained secondary to pt's inabilty to answer questions. (patient is somnolent) <Taylor Melo - Last Filed: 02/01/18 22:05> Physical Exam - Physical Exam Appears: Other (Somnolent) Skin: Warm, Dry Head: Atraumatic, Normacephalic Eye(s): bilateral: PERRL, EOMI Cardiovascular: Rhythm Regular, No Friction Rub, No Murmur Respiratory: Normal Breath Sounds, No Rales, No Rhonchi, No Stridor, No Wheezing Gastrointestinal/Abdominal: Bowel Sounds, Soft, No Tenderness Extremity: No Tenderness, No Pedal Edema, No Calf Tenderness Pulses: Left Dorsalis Pedis: Normal, Right Dorsalis Pedis: Normal <Taylor Melo - Last Filed: 02/01/18 22:05> ED Course And Treatment - Laboratory Results Result Diagrams: 02/01/18 17:41 02/01/18 17:41 O2 Sat by Pulse Oximetry: 95 <Taylor Melo - Last Filed: 02/01/18 22:05> - Laboratory Results Result Diagrams: 02/01/18 17:41 02/01/18 17:41 <Enrrique Gómez DO - Last Filed: 02/01/18 23:54> Medical Decision Making <Taylor Melo - Last Filed: 02/01/18 22:05> <Enrrique Gómez DO - Last Filed: 02/01/18 23:54> Medical Decision Making: CBC, CMP within normal limits UDS: posiitive for opiates and cocaine (Taylor Melo) Disposition <Taylor Melo - Last Filed: 02/01/18 22:05> - Disposition Disposition Time: 21:30 <Enrrique Gómez DO - Last Filed: 02/01/18 23:54> - Disposition Disposition: HOSPITALIZED Condition: STABLE - Clinical Impression Clinical Impression: Heroin dependence, Drug abuse - PA / [employer] / Resident Statement [facility]OS has reviewed & agrees with the documentation as recorded. [facility] has examined the patient and agrees with the treatment plan. <Enrrique Gómez DO - Last Filed: 02/01/18 23:54>
[2018-02-01] MEDS ORDERED: Albuterol-Ipratrop 3 mg / 0.5 (3 ml) UD INH STA ×3 (19:58→20:37)
[2018-02-01] MEDS ORDERED: Albuterol-Ipratrop 3 mg / 0.5 (3 ml) UD ONE ×3 (20:16→20:44)
[2018-02-01 21:06] LABS: SQUAMOUS EPITHIAL < 1 /hpf (0-5); URINE BACTERIA OCC (<OCC); URINE BILIRUBIN NEGATIVE (NEGATIVE); URINE BLOOD NEGATIVE (NEGATIVE); URINE CLARITY Hazy (Clear); URINE COLOR Amber (YELLOW); URINE GLUCOSE (UA) NORMAL (Normal); URINE LEUKOCYTE ESTERASE NEG Leu/uL (Negative); URINE PROTEIN 1+ mg/dL (NEGATIVE)
[2018-02-01] MEDS ORDERED: Bacitracin 500 Units/gm Oint Foilpak UD ONE (21:07)
[2018-02-01 21:14] LABS: BARBITURATES, UR NEGATIVE (NEGATIVE); PHENCYCLIDINE, UR NEGATIVE (NEGATIVE)
[2018-02-01 21:39] LABS: BENZODIAZEPINES, UR POSITIVE (NEGATIVE); OPIATES, UR POSITIVE (NEGATIVE)
--- NOTE | 2018-02-02 00:12 | PCM.BM ---
<Zev Arzate - Last Filed: 02/02/18 00:11> Treatment Plan Problems - Problems identified on initial assessmt Problem 1 Date Initiated: 02/02/18 Time Initiated: 00:11 Assessment reference: NA Status: Active Comment: Heroin abuse Treatment assets and liabiliti Patient Assests: self-reliant, ADL independent, good support system, negotiates basic needs Patient Liabilities: live alone, financial problems, poor support system - Milieu Protocol Maintain good personal hygiene: daily Encourage regular showers, daily Remind patient to perform daily oral care, daily Assist patient to perform ADL's Conduct patient checks and document Observation sheet: Q15 minutes Maintain personal safety: every shift Educate patient to report safety concerns to staff, every shift Monitor environment for contraband/sharps Medication safety: Monitor for expected outcome, potential side effects: every shift, Assess barriers to learning: every shift, Assess readiness for medication education: every shift <Kartik Riojas - Last Filed: 02/02/18 11:18> - Diagnosis (1) Opioid use disorder, severe, dependence Status: Acute Interventions: 02/02/18 11:18 * Assess 7x/week regarding severity of withdrawal * Educate regarding risks, benefits, side effects and alternatives of medications * Use Motivational Interviewing for abstinence * Use CBT for relapse prevention * Medication management for withdrawal symptoms * Encourage medication assisted treatment * <Katie Corrales - Last Filed: 02/05/18 10:48> Family Contact Family involvement: Family/SO is involved Family contact name: mom Family contacted how many times per week?: 1 - Goals for Treatment Patient goals for treatment: Complete detox and transition to inpatient rehab at [facility]. Discharge/Continuing Care - Education Needs Education Needs: Family Medication, Family Diagnosis/Disease Process, Patient Medication, Patient Diagnosis/Disease Process, Patient Coping Skills, Patient Anger Management skills, Patient Placement options, Patient Community resources - Discharge Discharge Criteria: No longer exhibiting s/s of withdrawal, Reduction of target symptoms Discharge to:: Substance Abuse Rehab - Treatment Team Participation Patient/Family/SO Statement: 02/05/18 10:47 "I wanna go to the [facility]." Discussed with Family/SO: Yes Was Patient/Family/SO present at Treatment Team Meeting: Yes
[2018-02-02] MEDS ORDERED: Albuterol HFA 90 mcg/actuation (8 g) INH PRN (03:49)
[2018-02-02] MEDS ORDERED: Albuterol-Ipratrop 3 mg / 0.5 (3 ml) UD INH STA (06:03)
--- NOTE | 2018-02-02 11:18 | PCM.PSYCH ---
Initial Psychiatric Evaluation - Initial Psychiatric Evaluation Type of Admission: Voluntary Legal Status: Capacity Chief Complaint (in patient's own words): "I relapsed" History of Present Illness and Precipitating Events: The patient is seen, chart reviewed and case discussed. He is known to the senior technical writer from previous admissions. This is a 32-year-old AA male, single, no child, homeless. He states he relapsed soon after detox in our program b/c he couldn't get into [facility] b/c he arrived late. He is using up to 20 bags of intranasal heroin. He started when he was 16 y/o He is also taking 8 mg of Xanax daily, some of it from a doctor. He smokes half pack per day cigarettes. He denies all other drug and alcohol use. His last use was yesterday and he was intoxicated then. He has history of ODs and he couldn' t get into other lower level detox programs. He declares that he cannot detox outside. Some dr gave him low dose suboxone and he abused it. He has lots of anxiety and some depression. He was in detox "many times" and rehab too and he used suboxone briefly. Past psych history: Denies. Medical history: Asthma Family psych history: Denies Current Medications: Active Medications Generic Name Dose Route Start Last Admin Trade Name Freq PRN Reason Stop Dose Admin Albuterol 1 puff 02/02/18 03:49 02/02/18 09:45 Ventolin Hfa 90 Mcg/Actuation (8 G) INH 1 puff RQ6 PRN Administration Shortness of Breath Past Psychiatric History - Past Psychiatric History Previous Treatment History: None Pertinent Medical Hx (Current Medical&Sleep Prob, Allergies): Allergies Allergy/AdvReac Type Severity Reaction Status Date / Time No Known Allergies Allergy Verified 02/01/18 17:04 Albuterol HFA [Ventolin HFA 90 mcg/actuation (8 g)] 1 puff INH RQ4 PRN #1 inhaler 11/10/16 Fluticasone/Salmeterol 250/50 [Advair Diskus 250/50] 1 puff INH RQ12 #1 puff 07/28 ALPRAZolam [Xanax] 1 mg PO BID 11/24/17 traZODone [Desyrel] 100 mg PO HS PRN #30 tab 11/28/17 Review of Systems - Psychiatric Psychiatric: Abnormal Sleep Pattern, Anxiety, Depression, Difficulty Concentrating. absent: Hallucinations, Homicidal Ideation, Paranoia Mental Status Examination - Personal Presentation Personal Presentation: Looks older than stated age - Affect Affect: Constricted - Motor Activity Motor Activity: Calm - Reliability in Providing Information Reliability in Providing Information: Good - Speech Speech: Organized - Mood Mood: Depressed, Anxious - Formal Thought Process Formal Thought Process: No Impairment - Cognitive Functions Orientation: Person, Place, Situation, Time Sensorium: Drowsy Attention/Concentration: Easily distracted Estimate of Intelligence: Average Judgement: Intact, as evidence by: Insight regarding need for hospitalization Memory: Recent intact, as evidence by: Ability to recall events of the day, Remote intact, as evidenced by: Abilit to recall sig. 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
[2018-02-02] MEDS: Multiple Vitamins Tab PO SCH (13:53)
[2018-02-03] MEDS: Multiple Vitamins Tab PO SCH (10:00)
--- NOTE | 2018-02-03 12:07 | PCM.PYCHPN ---
Psychiatric Progress Note - Psychiatric Progress Note Patient seen today, length of contact: 16 min Patient Chief Complaint: "Not well" Problems Identified/Issues Discussed: The pt is seen, chart reviewed, case discussed with staff. The pt is compliant with medications and reports no side-effects. Symptoms are improving but needs more time to stabilize. Pt attends groups and activities. Support given, psycho-education provided. After care discussed. Medication Change: Yes (detox changes daily) Medical Record Reviewed: Yes Mental Status Examination - Cognitive Function Orientation: Person, Place, Situation, Time Memory: Intact Attention: WNL Concentration: Poor Association: WNL Fund of Knowledge: WNL - Mood Mood: Depressed, Anxious - Affect Affect: Constricted - Speech Speech: Appropriate - Formal Thought Process Formal Thought Process: No Impairment - Suicidal Ideation Suicidal Ideation: No - Homicidal Ideation Homicidal Ideation: No Goal/Treatment Plan - Goal/Treatment Plan Need for Continued Stay: Discharge may exacerbated symptoms, Severe functional impairment Progress Toward Problem(s) and Goals/Treatment Plan: Opioids: - Methadone detox - As needed meds - Attend groups and activities - [place] and CBT - Support an dpsychoed Sedatives: - Librium detox, short - As needed meds - Attend groups and activities - [place] and CBT - Support an dpsychoed - Gabapentin Anxiety d/o : - Support and psychoed - gabapentin - CBT
[2018-02-04] MEDS: Multiple Vitamins Tab PO SCH (10:25)
[2018-02-05] MEDS: Multiple Vitamins Tab PO SCH (10:13)
--- NOTE | 2018-02-05 13:28 | PCM.PYCHPN ---
Psychiatric Progress Note - Psychiatric Progress Note Patient seen today, length of contact: 16 min Patient Chief Complaint: "Not well" Problems Identified/Issues Discussed: The pt is seen, chart reviewed, case discussed with staff. The pt is compliant with medications and reports no side-effects. Symptoms are improving but needs more time to stabilize. Pt attends groups and activities. Support given, psycho-education provided. After care discussed. Medication Change: Yes (detox changes daily) Medical Record Reviewed: Yes Mental Status Examination - Cognitive Function Orientation: Person, Place, Situation, Time Memory: Intact Attention: WNL Concentration: Poor Association: WNL Fund of Knowledge: WNL - Mood Mood: Depressed, Anxious - Affect Affect: Constricted - Speech Speech: Appropriate - Formal Thought Process Formal Thought Process: No Impairment - Suicidal Ideation Suicidal Ideation: No - Homicidal Ideation Homicidal Ideation: No Goal/Treatment Plan - Goal/Treatment Plan Need for Continued Stay: Discharge may exacerbated symptoms, Severe functional impairment Progress Toward Problem(s) and Goals/Treatment Plan: Opioids: - Methadone detox - As needed meds - Attend groups and activities - [place] and CBT - Support an dpsychoed Sedatives: - Librium detox, short - As needed meds - Attend groups and activities - [place] and CBT - Support an dpsychoed - Gabapentin Anxiety d/o : - Support and psychoed - gabapentin - CBT
--- NOTE | 2018-02-05 13:28 | PCM.PYCHPN ---
Psychiatric Progress Note - Psychiatric Progress Note Patient seen today, length of contact: 16 min Patient Chief Complaint: "Not well" Problems Identified/Issues Discussed: The pt is seen, chart reviewed, case discussed with staff. The pt is compliant with medications and reports no side-effects. Symptoms are improving but needs more time to stabilize. Pt attends groups and activities. Support given, psycho-education provided. After care discussed. Medication Change: Yes (detox changes daily) Medical Record Reviewed: Yes Mental Status Examination - Cognitive Function Orientation: Person, Place, Situation, Time Memory: Intact Attention: WNL Concentration: Poor Association: WNL Fund of Knowledge: WNL - Mood Mood: Depressed, Anxious - Affect Affect: Constricted - Speech Speech: Appropriate - Formal Thought Process Formal Thought Process: No Impairment - Suicidal Ideation Suicidal Ideation: No - Homicidal Ideation Homicidal Ideation: No Goal/Treatment Plan - Goal/Treatment Plan Need for Continued Stay: Discharge may exacerbated symptoms, Severe functional impairment Progress Toward Problem(s) and Goals/Treatment Plan: Opioids: - Methadone detox - As needed meds - Attend groups and activities - [place] and CBT - Support an dpsychoed Sedatives: - Librium detox, short - As needed meds - Attend groups and activities - [place] and CBT - Support an dpsychoed - Gabapentin Anxiety d/o : - Support and psychoed - gabapentin - CBT
[2018-02-05 14:17] VITALS: RESP 18
[2018-02-06 05:01] VITALS: O2SAT 99
[2018-02-06 08:44] VITALS: BP 100/65; PULSE 62; TEMP 97.9
--- NOTE | 2018-02-06 08:49 | PCM.PYCHDC ---
Mental Status Examination - Mental Status Examination Orientation: Person Discharge Summary - Discharge Note Consultations:: List each consultation separately and include: 1. Reason for request. 2. Findings. 3. Follow-up Summary of Hospital Course include:: 1. Description of specific treatment plan utilized for patients during their course of treatmen. 2. Summarize the time- course for resolution of acute symptoms and/or regressed behaviors. 3. Describe issues identified and worked on during hospitalization. 4. Describe medication utilized. 5. Describe medical problems identified and treated. 6. Reassessment of suicide risk Summary of Hospital Course: The patient is seen, chart reviewed and case discussed. He is known to the appeals writer from previous admissions. This is a 32-year-old AA male, single, no child, homeless. He states he relapsed soon after detox in our program b/c he couldn't get into [facility] b/c he arrived late. He is using up to 20 bags of intranasal heroin. He started when he was 16 y/o He is also taking 8 mg of Xanax daily, some of it from a doctor. He smokes half pack per day cigarettes. He denies all other drug and alcohol use. His last use was yesterday and he was intoxicated then. He has history of ODs and he couldn' t get into other lower level detox programs. He declares that he cannot detox outside. Some dr gave him low dose suboxone and he abused it. He has lots of anxiety and some depression. He was in detox "many times" and rehab too and he used suboxone briefly. Past psych history: Denies. Medical history: Asthma Family psych history: Denies He went to [facility] in [place]. - Diagnosis (1) Opioid use disorder, severe, dependence Current Visit: No Status: Acute - Final Diagnosis (DSM 5) Condition upon Discharge: STABLE Disposition: HOME/ ROUTINE Follow-up Treatment Plan: Opioids: - Methadone detox - As needed meds - Attend groups and activities - NV and CBT - Support an dpsychoed Sedatives: - Librium detox, short - As needed meds - Attend groups and activities - NV and CBT - Support an dpsychoed - Gabapentin Anxiety d/o : - Support and psychoed - gabapentin - CBT Prescriptions/Medication Reconciliation: Cephalexin [Keflex] 500 mg PO Q6H #12 cap Gabapentin [Neurontin] 300 mg PO BID #60 cap Mirtazapine [Remeron] 15 mg PO HS #30 tab traZODone [Desyrel] 100 mg PO HS #30 tab
[2018-02-06] MEDS: Multiple Vitamins Tab PO SCH (09:13)
== END 2018-02-06 09:45 | disposition home or self-care (01) | DRG 745 ==
LOC: C.ER 16:46 → C.7D 22:28
PROVIDERS: ADMIT Psychiatry & Neurology Psychiatry; ATTEND Psychiatry & Neurology Psychiatry
PROC: HZ2ZZZZ Detoxification Services for Substance Abuse Treatment (ICD-10-PCS; principal; 2018-02-01)
PROC: HZ59ZZZ Individual Psychotherapy for Substance Abuse Treatment, Supportive (ICD-10-PCS; 2018-02-01)
PROC: GZ3ZZZZ Medication Management (ICD-10-PCS; 2018-02-01)
PROC: HZ46ZZZ Group Counseling for Substance Abuse Treatment, Psychoeducation (ICD-10-PCS; 2018-02-01)
PROC: GZHZZZZ Group Psychotherapy (ICD-10-PCS; 2018-02-01)
PROC: GZ56ZZZ Individual Psychotherapy, Supportive (ICD-10-PCS; 2018-02-01)
DX: F11.23 Opioid dependence with withdrawal (principal); F32.9 Major depressive disorder, single episode, unspecified; F13.239 Sedative, hypnotic or anxiolytic dependence with withdrawal, unspecified; F14.90 Cocaine use, unspecified, uncomplicated; F17.210 Nicotine dependence, cigarettes, uncomplicated; F12.90 Cannabis use, unspecified, uncomplicated; F41.9 Anxiety disorder, unspecified; J45.909 Unspecified asthma, uncomplicated